=== PATIENT | female | born 1985 | race Caucasian/White ===

== ENCOUNTER 2018-02-10 05:45 | Day surgery (SDC) | payer OTHER ==
[~2018-02-10] VITALS: Ht 154.9 cm; Wt 80.3 kg
[2018-02-10 06:18] LABS: HCG,QUAL RESULT NEGATIVE (NEGATIVE)
[2018-02-10] MEDS ORDERED: CEFAZOLIN 1 GM IVPB PREMIX 50 ML IV ONE (07:00)
[2018-02-10] MEDS ORDERED: IOHEXOL 50 ML IV ONE (07:46)
[2018-02-10] MEDS ORDERED: LR 1,000 ML IV SCH (08:02)
[2018-02-10] MEDS ORDERED: MORPHINE 4 MG/ML INJ. SYRINGE IVP PRN ×3 (08:15)
[2018-02-10] MEDS ORDERED: METOCLOPRAMIDE HCL 10 MG/2 ML VIAL IVP PRN (08:15)
[2018-02-10] MEDS ORDERED: D5/0.45 NS 1,000 ML IV SCH (08:51)
[2018-02-10] MEDS ORDERED: HYDROmorphone 1 MG INJ. 1 MG/ML AMPUL IVP PRN (09:00)
[2018-02-10] MEDS ORDERED: HYDROcodone/ACETAMIN 5-325 MG TAB (NORCO/ VICODIN) PO PRN ×2 (09:00)
[2018-02-10] MEDS ORDERED: MORPHINE 4 MG/ML INJ. SYRINGE ONE (09:48)
[2018-02-10 10:15] VITALS: BP_SYST 117
[2018-02-10] MEDS ORDERED: HYDROcodone/ACETAMIN 5-325 MG TAB (NORCO/ VICODIN) ONE (10:15)
== END 2018-02-10 12:22 | disposition home or self-care (01) ==
LOC: SDS 05:45 → SMU 05:45 → SDS 12:22
PROVIDERS: ATTEND Colon & Rectal Surgery
DX: K80.10 Calculus of gallbladder with chronic cholecystitis without obstruction (principal); Z98.890 Other specified postprocedural states; Z83.3 Family history of diabetes mellitus; Z68.33 Body mass index [BMI] 33.0-33.9, adult; Z79.899 Other long term (current) drug therapy; D64.9 Anemia, unspecified; E66.01 Morbid (severe) obesity due to excess calories
CPT/HCPCS: 47563; 74300; 84703; 88304; C1727; C1758; J0690; J2270; J7120; Q9967